=== PATIENT | male | born 1930 | race Caucasian/White ===

== ENCOUNTER 2017-01-29 15:40 | Emergency (ER) | payer MEDICARE, OTHER ==
[2017-01-29 19:46] LABS: HEMOGLOBIN 14.5 gm/dl (14.0-17.5); RED BLOOD COUNT 4.22 M/UL (4.20-5.50); WHITE BLOOD COUNT 5.8 K/UL (4.5-11.0)
[2017-03-01] MEDS ORDERED: RANEXA500 MG PO ×2 (22:27→22:48)
[2017-03-01] MEDS ORDERED: VYTORIN 10-201 EACH PO (22:29)
[2017-03-01] MEDS ORDERED: AGGRENOX 25 MG1 EACH PO ×2 (22:31→22:42)
[2017-03-01] MEDS ORDERED: COREG 3.125M3.125 MG PO (22:32)
[2017-03-01] MEDS ORDERED: NIACIN ER1000 MG PO (22:33)
[2017-03-01] MEDS ORDERED: IMDUR ER TAB 6060 MG PO (22:34)
[2017-03-01] MEDS ORDERED: JANUVIA50 MG PO (22:35)
[2017-03-01] MEDS ORDERED: PREVACID30 MG PO (22:35)
[2017-03-01] MEDS ORDERED: COZAAR25 MG PO (22:36)
[2017-03-01] MEDS ORDERED: ANTIVERT 25MG T25 MG PO (22:37)
[2017-03-04] MEDS ORDERED: PROTONIX 40 MG40 M1 PO (11:20)
== END 2017-01-29 22:57 | disposition home or self-care (01) ==
LOC: ER1 15:40
PROVIDERS: Family Medicine
DX: R10.9 Unspecified abdominal pain (principal); E11.9 Type 2 diabetes mellitus without complications; I10 Essential (primary) hypertension; Z79.82 Long term (current) use of aspirin; Z79.84 Long term (current) use of oral hypoglycemic drugs; Z79.899 Other long term (current) drug therapy; Z95.0 Presence of cardiac pacemaker
CPT/HCPCS: 36415; 80053; 81001; 82150; 82550; 82553; 83690; 83874; 84484; 85025; 93005; 96360; 99284; J7040; Q9962

== ENCOUNTER → 2020-10-07 | Outpatient (CLI) | payer MEDICARE, OTHER ==
[~2020-10-07] MED LIST: AGGRENOX 25 MG1 EACH PO; ANTIVERT 25MG T25 MG PO; BENTYL 20MG TAB20 MG PO; CLARITIN 10MG T10 MG PO; COLACE100 MG PO; COREG 3.125M3.125 MG PO; COZAAR25 MG PO; CYCLOBENZAPRINE10 MG PO; CYCLOBENZAPRINE5 MG PO; IBU800 MG PO; IMDUR ER TAB 6060 MG PO; JANUVIA50 MG PO; KEFLEX250 MG PO; MEDROL DOSEPAK 24 MG PO; NIACIN ER1000 MG PO; NORCO 5-325 TA1 EACH PO; PREVACID30 MG PO; PROTONIX 40 MG40 M1 PO; PROTONIX40 MG PO; RANEXA500 MG PO; VITAMIN D 11000 UNIT PO; VYTORIN 10-201 EACH PO; ZOFRAN ODT 4 MG4 MG PO
== END ==
LOC: US 10-06 13:30
PROVIDERS: Internal Medicine Nephrology
DX: E78.5 Hyperlipidemia, unspecified (principal); N18.30 Chronic kidney disease, stage 3 unspecified; E55.9 Vitamin D deficiency, unspecified; N28.1 Cyst of kidney, acquired; N28.89 Other specified disorders of kidney and ureter
CPT/HCPCS: 36415; 80053; 82550; 82570; 83970; 84100; 84156

== ENCOUNTER 2020-12-01 10:54 | Emergency (ER) | payer MEDICARE, OTHER ==
[~2020-12-01 10:54] MED LIST changes: -CYCLOBENZAPRINE5 MG PO; -MEDROL DOSEPAK 24 MG PO
[2020-12-01] MEDS ORDERED: CYCLOBENZAPRINE5 MG PO (16:12)
[2020-12-01] MEDS ORDERED: MEDROL DOSEPAK 24 MG PO (16:12)
== END 2020-12-01 16:25 | disposition home or self-care (01) ==
LOC: ER1 10:54
DX: M51.86 Other intervertebral disc disorders, lumbar region (principal); I25.10 Atherosclerotic heart disease of native coronary artery without angina pectoris; I10 Essential (primary) hypertension; Z90.49 Acquired absence of other specified parts of digestive tract; Z91.018 Allergy to other foods; Z95.1 Presence of aortocoronary bypass graft
CPT/HCPCS: 72131; 72170; 72192; 99283

== ENCOUNTER 2021-04-11 20:25 | Inpatient (IN) | payer MEDICARE, OTHER ==
[~2021-04-11] VITALS: Ht 170.2 cm; Wt 83.9 kg
[~2021-04-11 20:25] MED LIST changes: +CYCLOBENZAPRINE5 MG PO; +MEDROL DOSEPAK 24 MG PO
[2021-04-11 21:03] LABS: HEMOGLOBIN 15.8 gm/dl (14.0-17.5); RED BLOOD COUNT 4.78 M/UL (4.20-5.50); WHITE BLOOD COUNT 6.8 K/UL (4.5-11.0)
[2021-04-13 08:14] LABS: HEMOGLOBIN 15.8 gm/dl (14.0-17.5); RED BLOOD COUNT 5.11 M/UL (4.20-5.50)
[2021-04-13 08:16] LABS: WHITE BLOOD COUNT 11.2 K/UL (4.5-11.0)
[2021-04-13] MEDS ORDERED: RANOLAZINE ER1000 MG PO (14:32)
[2021-04-13] MEDS ORDERED: VITAMIN D31250 MCG PO (14:34)
[2021-04-13] MEDS ORDERED: FLOMAX 0.4 MG0.4 MG PO (14:36)
[2021-04-13] MEDS ORDERED: VOLTAREN ARTHRI20 GM TP (14:37)
[2021-04-14 03:36] LABS: HEMOGLOBIN 16.1 gm/dl (14.0-17.5); RED BLOOD COUNT 4.91 M/UL (4.20-5.50); WHITE BLOOD COUNT 10.3 K/UL (4.5-11.0)
--- NOTE | 2021-04-14 04:05 | NUR ---
AT APPROXIMATELY 2300, PT COMPLAINED OF SEVERE UPPER RIGHT QUADRANT THAT WAS SHARP AND PERSISTENT. DR. LANDEROS NOTIFIED, ORDERS RECEIVED FOR NITRO. DR WEINBERG ARRIVED TO EXAMINE THE PATIENT AND ORDERED MYLANTA. AFTER ADMINSTRATION OF BOTH MEDICATIONS, PATIENT REMAINS COMFORTABLE AND PAIN FREE. SHEATH WAS REMOVED AT 2200 WITHOUT INCIDENT, SITE IS SOFT AND DRESSING IS CDI
[2021-04-14 04:19] LABS: BUN/CREATININE RATIO 20 (0-10)
[2021-04-15 05:39] LABS: HEMOGLOBIN 15.2 gm/dl (14.0-17.5); RED BLOOD COUNT 4.6 M/UL (4.20-5.50); WHITE BLOOD COUNT 10.7 K/UL (4.5-11.0)
[2021-04-16 02:46] LABS: RED BLOOD COUNT 4.57 M/UL (4.20-5.50); WHITE BLOOD COUNT 10.7 K/UL (4.5-11.0)
[2021-04-16] MEDS ORDERED: ATORVASTATIN CA20 MG PO (08:47)
[2021-04-16] MEDS ORDERED: BRILINTA 90 MG90 MG PO (08:47)
[2021-04-16] MEDS ORDERED: ISOSORBIDE MONO30 MG PO (08:47)
[2021-04-16] MEDS ORDERED: ASPIRIN EC81 MG PO (08:47)
== END 2021-04-16 11:00 | disposition home or self-care (01) | DRG 247 ==
LOC: ER1 20:25 → CDU 22:35 → PROG CARE 04-13 13:33
PROVIDERS: Internal Medicine; Internal Medicine Cardiovascular Disease; Physician Assistant; ADMIT Internal Medicine
PROC: 027034Z Dilation of Coronary Artery, One Artery with Drug-eluting Intraluminal Device, Percutaneous Approach (ICD-10-PCS; principal; 2021-04-13)
PROC: 4A023N7 Measurement of Cardiac Sampling and Pressure, Left Heart, Percutaneous Approach (ICD-10-PCS; 2021-04-13)
PROC: B2111ZZ Fluoroscopy of Multiple Coronary Arteries using Low Osmolar Contrast (ICD-10-PCS; 2021-04-13)
PROC: B24BZZ4 Ultrasonography of Heart with Aorta, Transesophageal (ICD-10-PCS; 2021-04-14)
DX: I21.4 Non-ST elevation (NSTEMI) myocardial infarction (principal); N17.9 Acute kidney failure, unspecified; E87.1 Hypo-osmolality and hyponatremia; I50.22 Chronic systolic (congestive) heart failure; I13.0 Hypertensive heart and chronic kidney disease with heart failure and stage 1 through stage 4 chronic kidney disease, or unspecified chronic kidney disease; Z20.822 Contact with and (suspected) exposure to COVID-19; I73.9 Peripheral vascular disease, unspecified; I25.5 Ischemic cardiomyopathy; E11.22 Type 2 diabetes mellitus with diabetic chronic kidney disease; N18.30 Chronic kidney disease, stage 3 unspecified; I08.2 Rheumatic disorders of both aortic and tricuspid valves; I27.20 Pulmonary hypertension, unspecified; D63.1 Anemia in chronic kidney disease; F41.9 Anxiety disorder, unspecified; K21.9 Gastro-esophageal reflux disease without esophagitis; D50.9 Iron deficiency anemia, unspecified; E78.5 Hyperlipidemia, unspecified; D69.6 Thrombocytopenia, unspecified; I71.4 Abdominal aortic aneurysm, without rupture; I25.10 Atherosclerotic heart disease of native coronary artery without angina pectoris; Z95.1 Presence of aortocoronary bypass graft; Z79.4 Long term (current) use of insulin; Z95.810 Presence of automatic (implantable) cardiac defibrillator; Z90.49 Acquired absence of other specified parts of digestive tract; Z82.49 Family history of ischemic heart disease and other diseases of the circulatory system; Z86.73 Personal history of transient ischemic attack (TIA), and cerebral infarction without residual deficits
CPT/HCPCS: ECHO; 36415; 71045; 80048; 80053; 80061; 82550; 82553; 82962; 83735; 83874; 83880; 84484; 85025; 85027; 85347; 85610; 85730; 93005; 93306; 99152; 99153; 99285; C1725; C1753; C1769; C1874; C1887; C1894; C9113; C9600; G0378; J0360; J1644; J2250; J2405; J3010; J7030; J7040; Q9965; U0002

== ENCOUNTER → 2021-05-11 | Outpatient (CLI) | payer MEDICARE, OTHER ==
[~2021-05-11] MED LIST changes: +ASPIRIN EC81 MG PO; +ATORVASTATIN CA20 MG PO; +BRILINTA 90 MG90 MG PO; +FLOMAX 0.4 MG0.4 MG PO; +ISOSORBIDE MONO30 MG PO; +RANOLAZINE ER1000 MG PO; +VITAMIN D31250 MCG PO; +VOLTAREN ARTHRI20 GM TP
[2021-05-11 15:05] LABS: BUN/CREATININE RATIO 15 (0-10)
== END ==
LOC: US 13:30
PROVIDERS: Internal Medicine Nephrology
DX: N18.30 Chronic kidney disease, stage 3 unspecified (principal); N40.0 Benign prostatic hyperplasia without lower urinary tract symptoms; N28.1 Cyst of kidney, acquired
CPT/HCPCS: 36415; 80053; 82570; 84153; 84156

== ENCOUNTER → 2021-06-10 | Outpatient (CLI) | payer MEDICARE, OTHER | LOC: RAD 14:12 | DX: M54.9 Dorsalgia, unspecified (principal); M47.817 Spondylosis without myelopathy or radiculopathy, lumbosacral region; I71.4 Abdominal aortic aneurysm, without rupture | CPT/HCPCS: 72100 ==

== ENCOUNTER 2021-07-01 02:52 | Emergency (ER) | payer MEDICARE, OTHER ==
[2021-07-01 04:02] LABS: HEMOGLOBIN 14.4 gm/dl (14.0-17.5); RED BLOOD COUNT 4.32 M/UL (4.20-5.50); WHITE BLOOD COUNT 5.3 K/UL (4.5-11.0)
== END 2021-07-01 09:40 | disposition home or self-care (01) ==
LOC: ER1 02:52
PROVIDERS: Physician Assistant
DX: E86.0 Dehydration (principal); R10.817 Generalized abdominal tenderness; N17.9 Acute kidney failure, unspecified; R11.2 Nausea with vomiting, unspecified; M84.48XA Pathological fracture, other site, initial encounter for fracture; I25.2 Old myocardial infarction; E78.5 Hyperlipidemia, unspecified; I12.9 Hypertensive chronic kidney disease with stage 1 through stage 4 chronic kidney disease, or unspecified chronic kidney disease; N18.9 Chronic kidney disease, unspecified; Z90.49 Acquired absence of other specified parts of digestive tract; Z86.73 Personal history of transient ischemic attack (TIA), and cerebral infarction without residual deficits; Z95.5 Presence of coronary angioplasty implant and graft
CPT/HCPCS: 80053; 82272; 82550; 82553; 83605; 83690; 83874; 84484; 85025; 89055; 93005; 99284; Q9967

== ENCOUNTER 2021-07-02 11:03 | Inpatient (IN) | payer MEDICARE, OTHER ==
[~2021-07-02] VITALS: Ht 170.2 cm; Wt 79.5 kg
[2021-07-02 12:03] LABS: HEMOGLOBIN 13.6 gm/dl (14.0-17.5); RED BLOOD COUNT 4.13 M/UL (4.20-5.50)
[2021-07-02 17:30] LABS: BORDETELLA PARAPERTUSSIS Not Detected (Not Detectd); BORDETELLA PERTUSSIS Not Detected (Not Detectd); CHLAMYDIA PNEUMONIAE Not Detected (Not Detectd); CORONAVIRUS HKU1 Not Detected (Not Detectd); CORONAVIRUS NL63 Not Detected (Not Detectd); CORONAVIRUS OC43 Not Detected (Not Detectd); CORONOAVIRUS 229E Not Detected (Not Detectd); HUMAN METAPNEUMOVIRUS Not Detected (Not Detectd); HUMAN RHINOVIRUS/ENTEROVIRUS Not Detected (Not Detectd); INFLUENZA A Not Detected (Not Detectd); INFLUENZA B Not Detected (Not Detectd); MYCOPLASMA PNEUMONIAE Not Detected (Not Detectd); PARAINFLUENZA VIRUS 1 Not Detected (Not Detectd); PARAINFLUENZA VIRUS 2 Not Detected (Not Detectd); PARAINFLUENZA VIRUS 3 Not Detected (Not Detectd); PARAINFLUENZA VIRUS 4 Not Detected (Not Detectd); RESPIRATORY SYNCYTIAL VIRUS Not Detected (Not Detectd)
[2021-07-02 19:04] LABS: SARS-CoV-2 NOT DETECTED (Not Detectd)
[2021-07-03 00:49] LABS: HEMOGLOBIN 12.6 gm/dl (14.0-17.5); RED BLOOD COUNT 3.82 M/UL (4.20-5.50); WHITE BLOOD COUNT 5.4 K/UL (4.5-11.0)
[2021-07-04 06:26] LABS: HEMOGLOBIN 13.3 gm/dl (14.0-17.5); RED BLOOD COUNT 4.06 M/UL (4.20-5.50); WHITE BLOOD COUNT 5.3 K/UL (4.5-11.0)
[2021-07-05 05:52] LABS: HEMOGLOBIN 12.8 gm/dl (14.0-17.5); RED BLOOD COUNT 3.92 M/UL (4.20-5.50); WHITE BLOOD COUNT 5.3 K/UL (4.5-11.0)
[2021-07-06 06:48] LABS: RED BLOOD COUNT 3.7 M/UL (4.20-5.50)
[2021-07-06 09:01] LABS: BUN/CREATININE RATIO 12 (0-10)
[2021-07-07 08:01] LABS: HEMOGLOBIN 12.2 gm/dl (14.0-17.5); RED BLOOD COUNT 3.83 M/UL (4.20-5.50); WHITE BLOOD COUNT 4.7 K/UL (4.5-11.0)
[2021-07-07 09:23] LABS: BUN/CREATININE RATIO 10 (0-10)
[2021-07-08 07:03] LABS: HEMOGLOBIN 12.2 gm/dl (14.0-17.5); RED BLOOD COUNT 3.79 M/UL (4.20-5.50); WHITE BLOOD COUNT 4.7 K/UL (4.5-11.0)
[2021-07-08] MEDS ORDERED: OMNICEF 300 MG300 MG PO (16:17)
[2021-07-08] MEDS ORDERED: METOPROLOL SUCC25 MG PO (16:17)
[2021-07-08] MEDS ORDERED: MAG-OX 400 TAB400 MG PO (16:17)
[2021-07-08] MEDS ORDERED: BUMETANIDE1 MG PO (16:47)
== END 2021-07-08 18:30 | disposition home health service (06) | DRG 177 ==
LOC: ER1 11:03 → MED SURG 4 13:25 → CDU 13:25 → PROG CARE 14:17 → MED SURG 4 07-03 18:30
PROVIDERS: Internal Medicine; Physician Assistant; Physician Assistant Medical; ADMIT Internal Medicine
DX: J69.0 Pneumonitis due to inhalation of food and vomit (principal); J96.01 Acute respiratory failure with hypoxia; G93.41 Metabolic encephalopathy; I13.0 Hypertensive heart and chronic kidney disease with heart failure and stage 1 through stage 4 chronic kidney disease, or unspecified chronic kidney disease; N17.9 Acute kidney failure, unspecified; I50.22 Chronic systolic (congestive) heart failure; M62.82 Rhabdomyolysis; E86.0 Dehydration; K52.9 Noninfective gastroenteritis and colitis, unspecified; N18.30 Chronic kidney disease, stage 3 unspecified; E11.22 Type 2 diabetes mellitus with diabetic chronic kidney disease; I25.5 Ischemic cardiomyopathy; K21.9 Gastro-esophageal reflux disease without esophagitis; Z96.611 Presence of right artificial shoulder joint; E83.42 Hypomagnesemia; I71.4 Abdominal aortic aneurysm, without rupture; I73.9 Peripheral vascular disease, unspecified; E11.51 Type 2 diabetes mellitus with diabetic peripheral angiopathy without gangrene; R53.81 Other malaise; I25.10 Atherosclerotic heart disease of native coronary artery without angina pectoris; I25.2 Old myocardial infarction; Z95.810 Presence of automatic (implantable) cardiac defibrillator; Z86.73 Personal history of transient ischemic attack (TIA), and cerebral infarction without residual deficits; Z95.5 Presence of coronary angioplasty implant and graft; Z90.49 Acquired absence of other specified parts of digestive tract; Z98.890 Other specified postprocedural states; Z79.4 Long term (current) use of insulin; Z79.82 Long term (current) use of aspirin; Z79.899 Other long term (current) drug therapy; Z82.49 Family history of ischemic heart disease and other diseases of the circulatory system; Z79.52 Long term (current) use of systemic steroids
CPT/HCPCS: 36415; 36600; 51702; 70450; 71045; 74230; 76705; 80048; 80053; 81001; 82272; 82550; 82553; 82565; 82803; 82962; 83605; 83690; 83735; 83874; 83880; 84484; 85025; 85027; 85610; 87040; 87086; 87633; 89055; 92526; 92610; 92611-GN; 93005; 94640; 94664; 94760; 96374; 96375; 97110; 97116-GP-CQ; 97161; 97166; 97535; 99284; 99285; J1644; J2185; J2405; J2543; J3475; J7030; Q9967; U0002

== ENCOUNTER 2021-07-18 08:10 | Emergency (ER) | payer MEDICARE, OTHER ==
[~2021-07-18 08:10] MED LIST changes: +BUMETANIDE1 MG PO; +MAG-OX 400 TAB400 MG PO; +METOPROLOL SUCC25 MG PO; +OMNICEF 300 MG300 MG PO
[2021-07-18 08:49] LABS: HEMOGLOBIN 14.4 gm/dl (14.0-17.5); RED BLOOD COUNT 4.31 M/UL (4.20-5.50); WHITE BLOOD COUNT 6.1 K/UL (4.5-11.0)
[2021-07-18] MEDS ORDERED: PHENERGAN 12.12.5 M1 PO (13:15)
== END 2021-07-18 13:27 | disposition home or self-care (01) ==
LOC: ER1 08:10
PROVIDERS: Student in an Organized Health Care Education/Training Program
DX: R11.2 Nausea with vomiting, unspecified (principal); E11.9 Type 2 diabetes mellitus without complications; Z79.899 Other long term (current) drug therapy
CPT/HCPCS: 71045; 80053; 81001; 82550; 82553; 83690; 83874; 84484; 85025; 93005; 99285; J7030; Q9965